=== PATIENT | female | born 1955 | race Caucasian/White ===

== ENCOUNTER 2022-01-24 10:30 | Outpatient (CLI) | payer MEDICARE, OTHER | END 2022-01-24 10:31 | disposition home or self-care (01) | LOC: CSHCP 10:30 | PROVIDERS: ATTEND Internal Medicine | DX: R91.1 Solitary pulmonary nodule (principal); J44.9 Chronic obstructive pulmonary disease, unspecified; C34.02 Malignant neoplasm of left main bronchus; E04.1 Nontoxic single thyroid nodule | CPT/HCPCS: 78815; 94060; 94726; 94729; 94760; A9552 ==

== ENCOUNTER 2022-03-23 05:47 | Day surgery (SDC) | payer MEDICARE, OTHER ==
[2022-03-22 08:43] VITALS: BMI 23.4
[2022-03-23] MEDS ORDERED: Bupivacaine PF 0.5% 30 ML VIAL ONE (06:25)
[2022-03-23] MEDS ORDERED: EPINEPHrine 1 MG/ML AMP ONE (06:25)
[2022-03-23] MEDS ORDERED: Dexamethasone 20 MG/5 ML VIAL ONE (06:28)
[2022-03-23] MEDS ORDERED: Midazolam HCl 2 mg/2 ml Vial ONE (06:28)
[2022-03-23] MEDS ORDERED: Ondansetron PF 4 MG/2 ML Vial ONE (06:28)
[2022-03-23] MEDS ORDERED: Lidocaine 1% PF 5 ML VIAL ONE (06:28)
[2022-03-23] MEDS ORDERED: PROPOFOL 20 ML ONE (06:28)
[2022-03-23] MEDS ORDERED: Fentanyl 100 MCG/2 ML VIAL ONE (06:28)
[2022-03-23] MEDS ORDERED: CEFAZOLIN 2 GM VIAL ONE (06:53)
[2022-03-23] MEDS ORDERED: ePHEDrine Sulfate 50 MG/10 ML VIAL ONE (07:07)
[2022-03-23] MEDS ORDERED: HYDROcodone/Acetaminophen 5/325 mg Tablet PO PRN (08:03)
[2022-03-23] MEDS ORDERED: Acetaminophen 325 MG TAB PO PRN (08:03)
== END 2022-03-23 08:20 | disposition home or self-care (01) ==
LOC: CSHSDC 05:47
PROVIDERS: ATTEND Surgery
PROC: 0JH60WZ Insertion of Totally Implantable Vascular Access Device into Chest Subcutaneous Tissue and Fascia, Open Approach (ICD-10-PCS; principal; 2022-03-23)
DX: C34.92 Malignant neoplasm of unspecified part of left bronchus or lung (principal); I48.0 Paroxysmal atrial fibrillation; I10 Essential (primary) hypertension; F41.9 Anxiety disorder, unspecified; J44.9 Chronic obstructive pulmonary disease, unspecified; E11.9 Type 2 diabetes mellitus without complications; E78.00 Pure hypercholesterolemia, unspecified; F17.200 Nicotine dependence, unspecified, uncomplicated; Z79.899 Other long term (current) drug therapy; Z79.84 Long term (current) use of oral hypoglycemic drugs
CPT/HCPCS: 36561; 71045; 77001; C1788; J0171; J1100; J1642; J2250; J2405; J2704; J3010; S0020